=== PATIENT | male | born 1960 | race Caucasian/White ===

== ENCOUNTER → 2016-09-06 | Outpatient (CLI) | payer OTHER | LOC: KOH-I 13:17 | DX: E04.9 Nontoxic goiter, unspecified (principal); M54.2 Cervicalgia; M54.9 Dorsalgia, unspecified | CPT/HCPCS: 71020; 72050; 72070; 72110; 76536 ==

== ENCOUNTER → 2016-09-18 | Outpatient (CLI) | payer OTHER | LOC: KOH-I 09:48 | DX: R22.1 Localized swelling, mass and lump, neck (principal) | CPT/HCPCS: 70491; Q9962 ==

== ENCOUNTER 2020-09-01 20:22 | Emergency (ER) | payer OTHER | END 2020-09-01 22:30 | disposition left against medical advice (07) | LOC: ER1 20:22 | DX: Z53.21 Procedure and treatment not carried out due to patient leaving prior to being seen by health care provider (principal) ==